=== PATIENT | female | born 1965 | race Caucasian/White ===

== ENCOUNTER 2016-07-19 23:08 | Emergency (ER) | payer MEDICAID ==
[2016-07-19 23:55] LABS: HEMATOCRIT 40.7 % (36.0-48.0); HEMOGLOBIN 13.1 g/dL (12-16); LYMPHOCYTES 31.8 % (15-50); MCH 23.1 pg (26.0-34.0); MCHC 32.2 g/dL (31.0-37.0); MCV 71.7 fL (80.0-100.0); MEAN PLATELET VOLUME 10.2 fL (7.4-10.4); NEUTROPHILS 60.4 % (40-80); PLATELET COUNT 295 10x3/uL (130-400); RBC 5.68 10x6/uL (4.00-5.40); RDW 15.9 % (11.5-14.5); WBC 8.3 10x3/uL (4.8-10.8)
[2016-07-20 00:08] LABS: ALBUMIN 4.3 g/dL (3.4-5.0); ALKALINE PHOSPHATASE 58 U/L (46-116); ALT (SGPT) 24 U/L (10-68); BILIRUBIN - TOTAL 0.58 mg/dL (0.2-1.3); CALC OSMOLALITY 273 mosm/kg (275-300); CALCIUM 9.5 mg/dL (8.5-10.1); CARBON DIOXIDE 24.4 mmol/L (21.0-32.0); CHLORIDE - SERUM 101 mmol/L (98-107); CREATININE - SERUM 0.9 mg/dL (0.6-1.3); GLUCOSE 105 mg/dL (74-106); PROTEIN - SERUM 8.7 g/dL (6.4-8.2); SODIUM 137 mmol/L (136-145); UREA NITROGEN 12 mg/dL (7-18); eGFR NON AFRICAN AMERICAN 70 mL/min (90-120)
[2016-07-20 00:21] LABS: CKMB 0.7 U/L (0.0-3.6); CREATINE KINASE 79 UL (21-215)
[2016-07-20 00:27] LABS: TROPONIN-I < 0.017 ng/mL (0.000-0.060)
[2016-07-20 00:52] LABS: APPEARANCE CLEAR (CLEAR); BILIRUBIN NEGATIVE (NEGATIVE); COLOR YELLOW (YELLOW); GLUCOSE NEGATIVE (NEGATIVE); KETONE NEGATIVE (NEGATIVE); LEUKOCYTE ESTERASE TRACE (NEGATIVE); NITRITE NEGATIVE (NEGATIVE); PROTEIN NEGATIVE (NEGATIVE); UROBILINOGEN NORMAL (NORMAL)
[2016-07-20 00:53] LABS: BACTERIA MODERATE /hpf (NONE SEEN); EPITHELIAL CELLS 0-5 /hpf (0-5); RED CELLS - URINE NONE SEEN /hpf (0-5); WHITE CELLS - URINE 0-5 /hpf (0-5)
== END 2016-07-20 03:44 | disposition home or self-care (01) ==
LOC: D.ER 23:08
PROVIDERS: Emergency Medicine
DX: R42 Dizziness and giddiness (principal); E87.6 Hypokalemia; R07.89 Other chest pain; K21.9 Gastro-esophageal reflux disease without esophagitis; I10 Essential (primary) hypertension; F17.200 Nicotine dependence, unspecified, uncomplicated